=== PATIENT | female | born 1975 | race Caucasian/White ===

== ENCOUNTER 2016-07-23 13:12 | Emergency (ER) | payer MEDICAID ==
[~2016-07-23] VITALS: Ht 160 cm; Wt 76.2 kg
[2016-07-23 13:16] VITALS: BP_SYST 123
--- NOTE | 2016-07-23 13:20 | NUR ---
Patient to ER bed 4 to gown for evaluation. Side rails up. Report given to Dragan PETERS.
--- NOTE | 2016-07-23 13:25 | NUR ---
ER at bedside examining patient.
[2016-07-23] MEDS ORDERED: NACL 0.9% 1,000 ML IV ONE (13:30)
[2016-07-23] MEDS ORDERED: DEXAMETHASONE SOD PHOSPHATE 10 MG/ML VIAL IVP ONE (13:30)
[2016-07-23] MEDS ORDERED: KETOROLAC TROMETHAMINE 30 MG VIAL IVP ONE (13:30)
--- NOTE | 2016-07-23 13:33 | NUR ---
PT PRESENST TO ED C/O COUGH AND SORE THROAT SINCE THIS AM. PT HAS NO SIGNIFICANT MED HX. FAMILY MEMBER AT HOME ILLNESS SEEN FOR SIMILIAR S/S.
[2016-07-23 13:52] LABS: BASOPHILS % (AUTO) 0.7 % (0.0-2.0); EOSINOPHILS % (AUTO) 0.1 % (0.0-4.0); HEMATOCRIT 38.3 % (36-48); HEMOGLOBIN 12.6 g/dL (12.0-16.0); LYMPHOCYTES # (AUTO) 1.1 K/uL (1.0-5.5); LYMPHOCYTES % (AUTO) 20.8 % (20.5-51.5); MEAN CORPUSCULAR HEMOGLOBIN 28 pg (27-31); MEAN CORPUSCULAR HGB CONC 33 % (32-36); MEAN CORPUSCULAR VOLUME 84 fL (79.0-98.0); MONOCYTES # (AUTO) 0.6 K/uL (0.0-1.0); MONOCYTES % (AUTO) 12.1 % (1.7-9.3); NEUTROPHILS # (AUTO) 3.6 K/uL (1.8-7.7); NEUTROPHILS % (AUTO) 66.3 % (40.0-70.0); PLATELET COUNT (AUTO) 280 K/uL (130-430); RED BLOOD CELL COUNT(AUTO) 4.56 MIL/uL (4.2-6.2); RED CELL DISTRIBUTION WIDTH 15.6 % (9.0-15.0); WHITE BLOOD COUNT (AUTO) 5.3 K/uL (4.8-10.8)
[2016-07-23] MEDS ORDERED: DEXAMETHASONE SOD PHOSPHATE 4 MG/ML VIAL INH ONE (14:00)
[2016-07-23] MEDS ORDERED: ALBUTEROL SULFATE 0.083% 2.5 MG/3 ML VIAL.NEB INH ONE (14:00)
[2016-07-23 14:15] LABS: CALCIUM 8.7 mg/dL (8.4-11.0); CREATININE 0.73 mg/dL (0.55-1.30); POTASSIUM 3.8 mmol/L (3.5-5.1)
[2016-07-23 14:19] LABS: TOTAL BILIRUBIN 0.3 mg/dL (0.0-1.0); TOTAL PROTEIN, SERUM 8.2 g/dL (6.4-8.3)
[2016-07-23] MEDS ORDERED: PENICILLIN G BENZATHINE 1.2 MMU/2 ML SYR IM ONE (14:30)
--- NOTE | 2016-07-23 14:49 | NUR ---
Patient given written and verbal discharge instructions and verbalizes understanding. ER MD discussed with patient the results and treatment provided. Given copies of tests performed in ER. Patient in stable condition. ID arm band removed. IV catheter removed intact and dressing applied, no active bleeding. Rx of ibuprofen given. Patient educated on pain management and to follow up with PMD. Pain Scale 2. Opportunity for questions provided and answered.
--- NOTE | 2016-07-23 14:49 | NUR ---
Pt tolerated tx.
[2016-07-23 14:50] VITALS: BP_SYST 121
== END 2016-07-23 14:49 | disposition home or self-care (01) ==
LOC: SED 13:12
DX: J03.90 Acute tonsillitis, unspecified (principal)
CPT/HCPCS: 36415; 80053; 83605; 85025; 87040; 96361; 96372; 96374; 96375; 99284; J0561; J1100; J1885; J7030

== ENCOUNTER 2017-09-07 11:40 | Emergency (ER) | payer MEDICAID ==
[~2017-09-07] VITALS: Ht 160 cm; Wt 81.6 kg
[2017-09-07 11:48] VITALS: BP_SYST 114
[2017-09-07] MEDS ORDERED: NACL 0.9% 1,000 ML IV ONE (11:59)
[2017-09-07] MEDS ORDERED: MECLIZINE HCL 25 MG TABLET (ANITVERT) PO ONE (12:15)
[2017-09-07 12:18] LABS: BASOPHILS % (AUTO) 0.5 % (0.0-2.0); EOSINOPHILS # (AUTO) 0.1 K/uL (0.0-0.4); HEMATOCRIT 33.8 % (36-48); HEMOGLOBIN 11.3 g/dL (12.0-16.0); LYMPHOCYTES % (AUTO) 25.1 % (20.5-51.5); MEAN CORPUSCULAR HEMOGLOBIN 27 pg (27-31); MEAN CORPUSCULAR HGB CONC 33 % (32-36); MEAN CORPUSCULAR VOLUME 81 fL (79.0-98.0); MONOCYTES # (AUTO) 0.4 K/uL (0.0-1.0); MONOCYTES % (AUTO) 5.2 % (1.7-9.3); NEUTROPHILS # (AUTO) 5.4 K/uL (1.8-7.7); NEUTROPHILS % (AUTO) 68.2 % (40.0-70.0); PLATELET COUNT (AUTO) 408 K/uL (130-430); RED BLOOD CELL COUNT(AUTO) 4.15 MIL/uL (4.2-6.2); RED CELL DISTRIBUTION WIDTH 15.1 % (9.0-15.0); WHITE BLOOD COUNT (AUTO) 7.9 K/uL (4.8-10.8)
[2017-09-07 12:21] LABS: BILIRUBIN,URINE NEGATIVE (NEGATIVE); BLOOD, URINE 1+ (NEGATIVE); CLARITY/URINE CLOUDY (CLEAR); COLOR,URINE YELLOW (YELLOW); GLUCOSE,URINE NEGATIVE (NEGATIVE); KETONES,URINE NEGATIVE (NEGATIVE); LEUKOCYTE ESTERASE ,URINE 1+ (NEGATIVE); NITRITE, URINE NEGATIVE (NEGATIVE); PH,URINE 5.5 (5.0-8.0); PROTEIN URINE NEGATIVE (NEGATIVE); UROBILINOGEN,URINE 0.2 (0.2-1.0)
[2017-09-07 12:33] LABS: CALCIUM 8.3 mg/dL (8.4-11.0); CREATININE 0.71 mg/dL (0.55-1.30); POTASSIUM 3.8 mmol/L (3.5-5.1)
[2017-09-07 12:37] LABS: BACTERIA,URINE FEW /HPF (None Seen); INR 0.9 (0.8-1.2); PROTHROMBIN TIME 9.2 SECS (9.5-12.5); WBC,URINE 20-50 /HPF (0-3)
[2017-09-07 12:38] LABS: ALBUMIN 3.4 g/dL (3.4-4.8); MUCUS,URINE 1+ /LPF (None Seen); TOTAL BILIRUBIN 0.3 mg/dL (0.0-1.0)
[2017-09-07] MEDS ORDERED: cefTRIAXone 1 GM in D5W 50 ML IV ONE (12:45)
[2017-09-07] MEDS ORDERED: cefTRIAXone 1 GM VIAL ONE (13:20)
[2017-09-07 14:10] VITALS: BP_SYST 118
== END 2017-09-07 14:10 | disposition home or self-care (01) ==
LOC: SED 11:40
DX: R42 Dizziness and giddiness (principal); N39.0 Urinary tract infection, site not specified; R03.0 Elevated blood-pressure reading, without diagnosis of hypertension
CPT/HCPCS: 36415; 71045; 80053; 81000; 82550; 83690; 85025; 85610; 85730; 87086; 93005; 96365; 99285; J0696; J7030; J7060; J8597; 96360

== ENCOUNTER 2018-12-21 19:35 | Emergency (ER) | payer MEDICAID ==
[~2018-12-21] VITALS: Ht 160 cm; Wt 73.5 kg
[2018-12-21 19:44] VITALS: BP_SYST 119
[2018-12-21] MEDS ORDERED: KETOROLAC TROMETHAMINE 30 MG VIAL IVP ONE (20:30)
[2018-12-21 20:40] LABS: BASOPHILS # (AUTO) 0.1 K/uL (0.0-0.2); BASOPHILS % (AUTO) 0.6 % (0.0-2.0); HEMOGLOBIN 9.6 g/dL (12.0-16.0); LYMPHOCYTES # (AUTO) 1.5 K/uL (1.0-5.5); LYMPHOCYTES % (AUTO) 10.3 % (20.5-51.5); MEAN CORPUSCULAR HEMOGLOBIN 22 pg (27-31); MEAN CORPUSCULAR HGB CONC 31 % (32-36); MEAN CORPUSCULAR VOLUME 72 fL (79.0-98.0); MONOCYTES # (AUTO) 0.9 K/uL (0.0-1.0); MONOCYTES % (AUTO) 6.6 % (1.7-9.3); NEUTROPHILS # (AUTO) 11.8 K/uL (1.8-7.7); NEUTROPHILS % (AUTO) 82.5 % (40.0-70.0); PLATELET COUNT (AUTO) 338 K/uL (130-430); RED BLOOD CELL COUNT(AUTO) 4.33 MIL/uL (4.2-6.2); RED CELL DISTRIBUTION WIDTH 19.3 % (9.0-15.0); WHITE BLOOD COUNT (AUTO) 14.3 K/uL (4.8-10.8)
[2018-12-21 20:51] LABS: ANION GAP 12 (5-15); CALCIUM 8.5 mg/dL (8.4-11.0); CHLORIDE 104 mmol/L (98-107); CREATININE 0.77 mg/dL (0.55-1.30); GLUCOSE 105 mg/dL (70-99); POTASSIUM 3.5 mmol/L (3.5-5.1); SODIUM SERUM 138 mmol/L (136-145); UREA NITROGEN, BLOOD 9 mg/dL (8-21)
[2018-12-21 20:52] LABS: GFR AFRICAN AMERICAN 106 mL/min (>90)
[2018-12-21 21:00] LABS: ALANINE AMINOTRANSFERASE 21 U/L (12-78); ALBUMIN 3.4 g/dL (3.4-4.8); ASPARTATE AMINOTRANSFERASE 22 U/L (10-37); TOTAL BILIRUBIN 0.7 mg/dL (0.0-1.0)
[2018-12-21] MEDS ORDERED: fentaNYL CITRATE/PF 100 MCG/2 ML AMP IVP ONE (21:30)
[2018-12-21 22:06] VITALS: BP_SYST 124
== END 2018-12-21 22:06 | disposition home or self-care (01) ==
LOC: SED 19:35
DX: J40 Bronchitis, not specified as acute or chronic (principal); F12.90 Cannabis use, unspecified, uncomplicated
CPT/HCPCS: 36415; 71046; 80053; 81025; 84484; 85025; 85379; 93005; 96374; 96375; 99284; J1885; J3010

== ENCOUNTER 2021-02-21 13:01 | Emergency (ER) | payer MEDICAID ==
[~2021-02-21] VITALS: Ht 160 cm; Wt 64.9 kg
[2021-02-21 13:07] VITALS: BP_SYST 116
[2021-02-21 13:33] LABS: BASOPHILS % (AUTO) 0.6 % (0.0-2.0); EOSINOPHILS % (AUTO) 0.8 % (0.0-4.0); HEMATOCRIT 28.2 % (36-48); HEMOGLOBIN 8.7 g/dL (12.0-16.0); LYMPHOCYTES # (AUTO) 1.1 K/uL (1.0-5.5); MEAN CORPUSCULAR HEMOGLOBIN 21 pg (27-31); MEAN CORPUSCULAR HGB CONC 31 % (32-36); MEAN CORPUSCULAR VOLUME 68 fL (79.0-98.0); MONOCYTES # (AUTO) 0.6 K/uL (0.0-1.0); MONOCYTES % (AUTO) 10.2 % (1.7-9.3); NEUTROPHILS # (AUTO) 3.8 K/uL (1.8-7.7); NEUTROPHILS % (AUTO) 68.4 % (40.0-70.0); PLATELET COUNT (AUTO) 318 K/uL (130-430); RED BLOOD CELL COUNT(AUTO) 4.18 MIL/uL (4.2-6.2); RED CELL DISTRIBUTION WIDTH 18.8 % (9.0-15.0); WHITE BLOOD COUNT (AUTO) 5.6 K/uL (4.8-10.8)
[2021-02-21 13:44] LABS: CALCIUM 7.5 mg/dL (8.4-11.0); CREATININE 0.7 mg/dL (0.55-1.30); POTASSIUM 3.5 mmol/L (3.5-5.1)
[2021-02-21 13:48] LABS: ALBUMIN 3.2 g/dL (3.4-4.8); C-REACTIVE PROTEIN QUANT 0.9 mg/dL (0-0.5); TOTAL BILIRUBIN 0.4 mg/dL (0.0-1.0); URIC ACID 2.8 mg/dL (2.4-7.0)
[2021-02-21 13:55] LABS: INR 0.9 (0.8-1.2); PROTHROMBIN TIME 9.9 SECS (9.5-12.5)
[2021-02-21 14:11] LABS: ERYTHROCYTE SEDIMENTATION RATE 35 MM/HR (0-20)
[2021-02-21] MEDS ORDERED: HYDR-3917 PO (14:16)
[2021-02-21] MEDS ORDERED: IBUP-1969 PO (14:16)
[2021-02-21 14:27] VITALS: BP_SYST 116
== END 2021-02-21 14:27 | disposition home or self-care (01) ==
LOC: SED 13:01
DX: M25.521 Pain in right elbow (principal)
CPT/HCPCS: 36415; 80053; 81025; 84550; 84703; 85025; 85610-TC; 85651-TC; 85730-TC; 86140; 99284

== ENCOUNTER 2021-05-09 18:51 | Emergency (ER) | payer MEDICAID ==
[~2021-05-09] VITALS: Ht 167.6 cm; Wt 74.8 kg
[~2021-05-09 18:51] MED LIST: HYDR-3917 PO; IBUP-1969 PO
[2021-05-09 19:00] VITALS: BP_SYST 116
--- NOTE | 2021-05-09 20:05 | NUR ---
Patient triaged and placed in waiting room. VSS and patient appears in no acute distress at this time. Accompanied by self, awaiting available bed, and MD notified of need for MSE.
--- NOTE | 2021-05-09 20:15 | NUR ---
Pt brought by self ,A&Ox4, pt presents to ER with epigastric pain/ nausea, skin pink and warm, cap refill <3, VSS, respirations even and unlabored.
[2021-05-09 22:14] LABS: BASOPHILS % (AUTO) 0.2 % (0.0-2.0); EOSINOPHILS # (AUTO) 0.1 K/uL (0.0-0.4); EOSINOPHILS % (AUTO) 0.5 % (0.0-4.0); HEMOGLOBIN 9.1 g/dL (12.0-16.0); LYMPHOCYTES # (AUTO) 0.6 K/uL (1.0-5.5); LYMPHOCYTES % (AUTO) 4.8 % (20.5-51.5); MEAN CORPUSCULAR HEMOGLOBIN 21 pg (27-31); MEAN CORPUSCULAR HGB CONC 30 % (32-36); MEAN CORPUSCULAR VOLUME 69 fL (79.0-98.0); MONOCYTES # (AUTO) 0.5 K/uL (0.0-1.0); MONOCYTES % (AUTO) 4.2 % (1.7-9.3); NEUTROPHILS # (AUTO) 11.2 K/uL (1.8-7.7); NEUTROPHILS % (AUTO) 90.3 % (40.0-70.0); PLATELET COUNT (AUTO) 389 K/uL (130-430); RED BLOOD CELL COUNT(AUTO) 4.36 MIL/uL (4.2-6.2); RED CELL DISTRIBUTION WIDTH 21.9 % (9.0-15.0); WHITE BLOOD COUNT (AUTO) 12.4 K/uL (4.8-10.8)
[2021-05-09 22:50] LABS: CALCIUM 8.8 mg/dL (8.4-11.0); CREATININE 0.56 mg/dL (0.55-1.30); POTASSIUM 4.1 mmol/L (3.5-5.1)
[2021-05-09 22:55] LABS: ALBUMIN 3.8 g/dL (3.4-4.8); TOTAL BILIRUBIN 0.4 mg/dL (0.0-1.0)
--- NOTE | 2021-05-09 23:50 | NUR ---
Patient to ER bed DE DIOS to gon for evaluation. Side rails up. Report given to SUDHA PETERS.
--- NOTE | 2021-05-10 01:00 | NUR ---
Pt walked out the ER.Pt LWBS.Dr Vee notified.
== END 2021-05-10 01:14 | disposition left against medical advice (07) ==
LOC: SED 18:51
DX: R07.89 Other chest pain (principal); Z53.21 Procedure and treatment not carried out due to patient leaving prior to being seen by health care provider
CPT/HCPCS: 36415; 80053; 85025; 93005